=== PATIENT | male | born 1955 | race Caucasian/White ===

== ENCOUNTER 2017-01-26 01:49 | Emergency (ER) | payer BC ==
[~2017-01-26] VITALS: Ht 190.5 cm; Wt 108.9 kg
[~2017-01-26 01:49] MED LIST: ASCORBIC ACID500 M3 PO; BACTRIM,SEPT1 TABLET PO; LEVAQUIN750 MG PO; METFORMIN HCL500 MG PO; PERCOCET 5/31 TABLET PO
[2017-01-26 02:26] LABS: HEMATOCRIT 42.5 % (38.0-50.0); MCH 29.3 PG (29.0-34.0); MCHC 33.4 G/DL (30.0-36.0); MCV 87.8 FL (86-99); PLATELET COUNT 205 K/uL (156-360); RBC DIS.WIDTH-CV 13.2 % (11.8-14.6); RBC DIS.WIDTH-SD 42.5 % (39-53); RED BLOOD COUNT 4.84 M/uL (4.00-5.50); WHITE BLOOD COUNT 7.6 K/uL (4.1-10.2)
[2017-01-26 02:34] LABS: CHLORIDE 106 mEq/L (99-109); POTASSIUM 4.8 mEq/L (3.7-5.4); SODIUM 138 mEq/L (136-147)
[2017-01-26 02:36] LABS: GLUCOSE 103 mg/dL (70-99)
[2017-01-26 02:37] LABS: ANION GAP 12 MEQ/L (2-14)
[2017-01-26 02:40] LABS: GFR ESTIMATE (CALCULATED) 47 mL/min/
[2017-01-26 02:41] LABS: UREA NITROGEN (BUN) 25 mg/dL (9-23)
[2017-01-26 03:54] VITALS: BP 131/72
== END 2017-01-26 03:55 | disposition home or self-care (01) ==
LOC: EME 01:49
PROVIDERS: Emergency Medicine
DX: L03.115 Cellulitis of right lower limb (principal); E86.0 Dehydration; R53.81 Other malaise; R51 Headache; E11.9 Type 2 diabetes mellitus without complications; Z79.84 Long term (current) use of oral hypoglycemic drugs
CPT/HCPCS: 80048; 83605; 85027; 87040; 99281; 99285; J7030